=== PATIENT | female | born 1980 | race Caucasian/White ===

== ENCOUNTER 2017-08-20 18:46 | Emergency (ER) | payer OTHER ==
[2017-08-20] MEDS ORDERED: 0.9 % SODIUM CHLORIDE 1,000 ML BAG IV ONE (19:16)
[2017-08-20] MEDS ORDERED: ONDANSETRON HCL IV 4 MG/2 ML VIAL IV ONE (19:16)
[2017-08-20] MEDS ORDERED: HYDROMORPHONE HCL 1MG/ML **SYRINGE IVP ONE ×2 (19:17→19:57)
--- NOTE | 2017-08-20 19:17 | Emergency Department Record ---
History of Present Illness - General Chief Complaint: Abdominal Pain Stated Complaint: ABD PAIN Time Seen by Provider: 08/20/17 19:10 Source: Patient Mode of Arrival: Ambulatory Limitations: No limitations - History of Present Illness Initial Comments: The patient is here due to a 3 day hx of R sided AP. It started around her umbilicus and now has moved to the RLQ. She has had nausea but no vomiting. The patient has had her gallbladder removed in the past along with a MIRZA. She is concerned about her appendix. There is no reported diarrhea, fever, chills, or dysuria. MD Complaint: Abdominal pain Onset/Timin -: Days(s) Location: RUQ, RLQ Radiation: Back Severity: Moderate Quality: Aching, Dull Consistency: Intermittent Improves With: Rest Worsens With: Movement, Other Associated Symptoms: Nausea - Related Data Patient : No (hyst in 2012) Home Medications Medication Instructions Recorded Confirmed Last Taken Duloxetine HCl [Cymbalta] 120 mg PO DAILY 08/20/17 08/20/17 08/20/17 Folic Acid [Folic Acid] 2 mg PO DAILY 08/20/17 08/20/17 08/20/17 Tapentadol HCl [Nucynta] 75 mg PO Q6H 08/20/17 08/20/17 08/20/17 Allergies Allergy/AdvReac Type Severity Reaction Status Date / Time clindamycin Allergy Severe anaphylaxis Verified 08/20/17 18:53 amoxicillin Allergy unknown Verified 08/20/17 18:53 morphine Allergy increased Verified 08/20/17 18:53 pain and nausea Penicillins Allergy unknown Verified 08/20/17 18:53 prednisone Allergy mood change Verified 08/20/17 18:53 pregabalin [From Lyrica] Allergy PT UNSURE Verified 08/20/17 18:54 OF REACTION trazodone Allergy bradycardia Verified 08/20/17 18:53 Travel Screening - Travel/Exposure Within Last 30 Days Have you traveled within the last 30 days?: Yes Location Detail:: [place] - Travel/Exposure Within Last Year Have you traveled outside the [place] in the last year?: No - Additonal Travel Details Have you been exposed to anyone with a communicable illness?: No - Travel Symptoms Symptom Screening: None Review of Systems Constitutional: Denies: Chills, Fever Eyes: Denies: Eye discharge ENT: Denies: Congestion Respiratory: Denies: Cough, Dyspnea Past Medical History - SOCIAL HISTORY Smoking Status: Never smoker Alcohol Use: None Drug Use: None - RESPIRATORY Hx Respiratory Disorders: No - CARDIOVASCULAR Hx Cardio Disorders: Yes Hx Heart Attack: Yes (Some kind of blockage) - NEURO Hx Neuro Disorders: No - GI Hx GI Disorders: No - Hx Genitourinary Disorders: No - ENDOCRINE Hx Endocrine Disorders: No - MUSCULOSKELETAL Hx Musculoskeletal Disorders: Yes Hx Fibromyalgia: Yes Comment:: Ehler-s danlos syndrome - PSYCH Hx Psych Problems: Yes Hx Anxiety: Yes Hx Depression: Yes - HEMATOLOGY/ONCOLOGY Hx Hematology/Oncology Disorders: No Family Medical History Any Significant Family History?: Yes Hx Cancer: Father, Mother, Grandparents Hx Heart Disease: Mother, Grandparents Physical Exam - General General Appearance: Alert, Oriented x3, Cooperative, No acute distress - Head Head exam: Atraumatic, Normocephalic, Normal inspection - Eye Eye exam: Normal appearance, PERRL - ENT Throat exam: Normal inspection. negative: Tonsillar erythema, Tonsillar exudate - Neck Neck exam: Normal inspection, Full ROM. negative: Tenderness - Respiratory Respiratory exam: Normal lung sounds bilaterally. negative: Respiratory distress - Cardiovascular Cardiovascular Exam: Regular rate, Normal rhythm, Normal heart sounds - GI/Abdominal GI/Abdominal exam: Soft, Tenderness (There is tenderness in the RLQ.). negative : Distended, Guarding, Rigid - Extremities Extremities exam: Normal inspection, Full ROM, Normal capillary refill. negative: Tenderness Course Vital Signs 08/20/17 18:57 Temperature 98.8 F Pulse Rate 76 Respiratory 16 Rate Blood Pressure 111/66 Pulse Ox 97 - Reevaluation(s) Reevaluation #1: The patient is doing better at this time. She is still having mild pain but no nausea. Her repeat temp is normal at 98.1. On exam there is very mild RLQ tenderness but no guarding or rebound and the abdomen is very soft. I did explain to her that her CT does not demonstrate any abnormality. She is to proceed home and to take her home pain medicines. She is to return to the ER in 10-12 hours for recheck if the pain does not resolve or worsens. 08/20/17 21:55 08/20/17 21:58 Medical Decision Making - Data Complexity MDM Data: Labs Ordered and/or Reviewed, X-Ray Ordered and/or Reviewed - Lab Data Result diagrams: 08/20/17 19:29 08/20/17 19:29 - Radiology Data Radiology results: Report reviewed (CT: Neg for any acute intra-abdominal process. Normal appendix.) Disposition Disposition: Discharge Clinical Impression: Abdominal pain Qualifiers: Abdominal location: unspecified location Qualified Code(s): R10.9 - Unspecified abdominal pain Disposition: Home, Self-Care Condition: (1) Good Instructions: Abdominal Pain (ED) Additional Instructions: Please drink lots of fluids and take a laxative for 24 hours. Please use your home pain medicines if needed. Return to the ER in 10-12 hours for any persistent or repeat abdominal pain, fever, nausea, or vomiting. If improved please see your PCP for recheck next week. Forms: Patient Portal Access Time of Disposition: 22:00 Quality - Quality Measures Quality Measures: N/A - Blood Pressure Screening View Details: Yes Does Patient Have Any of the Following: No Blood Pressure Classification: Hypertensive Reading Systolic Measurement: 134 Diastolic Measurement: 90 Screening for High Blood Pressure: < Normal BP, F/U Not Required > [[id number]]
[2017-08-20 19:21] LABS: URINE APPEARANCE CLEAR; URINE BILIRUBIN NEGATIVE (NEGATIVE); URINE BLOOD NEGATIVE (NEGATIVE); URINE COLOR YELLOW; URINE GLUCOSE (UA) NEGATIVE (NEGATIVE); URINE KETONE NEGATIVE (NEGATIVE); URINE LEUKOCYTE ESTERASE NEGATIVE (NEGATIVE); URINE NITRITE NEGATIVE (NEGATIVE); URINE PROTEIN NEGATIVE (NEGATIVE); URINE UROBILINOGEN 0.2 E.U./dL (0.20 - 1.00)
[2017-08-20 19:39] LABS: BASO % 0.9 % (0-6); EOS % 2.2 % (0-6); GRAN % 43.7 % (47-80); HEMATOCRIT 42.4 % (35.0-47.0); HEMOGLOBIN 13.8 gm/dl (11.6-16.0); LYMPH % 45.5 % (16-45); MEAN CELL VOLUME 91.2 fl (81-97); MEAN CORPUSCULAR HEMOGLOBIN 29.7 pg (27-33); MEAN CORPUSCULAR HGB CONC 32.5 g/dl (32-36); MEAN PLATELET VOLUME 11.1 fl (7.4-10.4); MONO % 7.7 % (0-9); PLATELET COUNT 236 K/uL (130-400); RED BLOOD COUNT 4.65 M/uL (3.80-5.40); RED CELL DISTRIBUTION WIDTH 12.6 % (11.5-14.5); WHITE BLOOD COUNT W/O DIFF 6.7 K/uL (4.2-12.2)
[2017-08-20 19:54] LABS: ALBUMIN 4.3 g/dL (4.0-5.0); ALKALINE PHOSPHATASE 61 U/L (35-104); ALT/SGPT 21 U/L (<33); AST/SGOT 20 U/L (10.0-35.0); BLOOD UREA NITROGEN 12 mg/dL (6-20); CREATININE 0.7 mg/dL (0.5-0.9); EST GLOMERULAR FILTRATION RATE > 60 mL/min; GLUCOSE,RANDOM 90 mg/dL (74-109); LIPASE 82 U/L (13-60); TOTAL PROTEIN 6.9 g/dL (6.6-8.7)
[2017-08-20 19:55] LABS: BILIRUBIN,DIRECT < 0.2 mg/dL (0-0.3)
[2017-08-20] MEDS ORDERED: KETOROLAC 30 MG/ML VIAL IVP ONE (21:54)
--- NOTE | 2017-08-23 05:35 | CT SCAN REPORT ---
DATE: 08/20/2017 at 2058. EXAM: CT OF THE ABDOMEN AND PELVIS WITH CONTRAST. HISTORY: Right lower quadrant abdominal pain with nausea and back pain. TECHNIQUE: Following oral and intravenous contrast administration, helical CT examination of the abdomen and pelvis was performed including delayed images through the kidneys with 90 mL of Omnipaque 300 utilized. COMPARISON: None. FINDINGS: Mild dependent atelectasis is suggested in each lung base. The visualized lung bases are otherwise clear, and there is no pleural or pericardial effusion. The heart is not enlarged. There is a [id number]-yx-characterize hypodense lesion in the liver dome measuring approximately 3.0 mm. This is nonspecific, though likely a cyst. The gallbladder is surgically absent. There is mild prominence of the central biliary tree with the common hepatic duct measuring up to 11 mm. No obstructing lesion is, however, seen. This likely relates to a physiologic response to surgical absence of the gallbladder. Correlation with serum bilirubin and alkaline phosphatase levels is recommended. The spleen, pancreas, adrenal glands, and kidneys are without suspicious focal abnormality. The pancreatic duct is visualized and is near the upper limits of normal in caliber. No intra-abdominal nor retroperitoneal lymphadenopathy is seen. The vasculature is normal in appearance. There is a small, fat-filled umbilical hernia appearing uncomplicated. No pelvic mass, lymphadenopathy, or free pelvic fluid is seen. The uterus is surgically absent. No intrinsic urinary bladder abnormality is noted. No gross bowel dilatation nor bowel wall thickening. The appendix is visualized and is normal in appearance. No lytic or blastic bone lesion is seen. IMPRESSION: 1. STATUS POST CHOLECYSTECTOMY AND HYSTERECTOMY. 2. MILD PROMINENCE OF THE CENTRAL BILIARY TREE, DISCUSSED ABOVE. 3. TINY HYPODENSITY IN THE LIVER DOME IS NONSPECIFIC, THOUGH LIKELY A CYST OR HEMANGIOMA. 4. NO CONVINCING CT EVIDENCE OF AN ACUTE INTRA-ABDOMINAL NOR INTRAPELVIC PROCESS. JOB NUMBER: [id number] MTDD
== END 2017-08-20 22:29 | disposition home or self-care (01) ==
LOC: ER 18:46
DX: R10.31 Right lower quadrant pain (principal); R11.0 Nausea
CPT/HCPCS: 99284 ×2; 96376; 96374; 96375; 83690; 85025; 80076; 80048; 81003; 74177; Q9967; J1885; J2405; J1170; J7030